=== PATIENT | male | born 1960 | race Caucasian/White ===

== ENCOUNTER 2017-07-08 08:46 | Emergency (ER) | payer SELFPAY ==
[~2017-07-08] VITALS: Ht 167.6 cm; Wt 76.0 kg
[2017-07-08 08:49] VITALS: BP 204/111; PULSE 87; RESP 16; TEMP 98; O2SAT 98
--- NOTE | 2017-07-08 09:10 | PD ---
HPI Chief Complaint: Dizziness Time Seen by Provider: 08:54 Travel History International Travel<30 days: No Contact w/Intl Traveler<30days: No Traveled to known affect area: No History of Present Illness HPI This 56-year-old male is complaining of pressure in his neck. He has been checking his blood pressure at home frequently at home and it has been greater than 200 systolic and sometimes greater than 100 diastolic. He has never been treated for high blood pressure. He is not having chest pain or shortness of breath. PFSH Past Medical History Diminished Hearing: No Genitourinary: Yes (unable to empty bladder at times-has seen md for this.) Hypertension: Yes Past Surgical History Eye Surgery: Yes (RIGHT EYE PARTIAL CORNEAL TRANSPLANT) Social History Alcohol Use: Yes (beer daily) Tobacco Use: No Substance Use: No Allergies-Medications (Allergen,Severity, Reaction): Coded Allergies: No Known Allergies (Verified Adverse Reaction, Unknown, 07/08/17) Reported Meds & Prescriptions Reported Meds & Active Scripts Active No Active Prescriptions or Reported Medications Review of Systems General / Constitutional: No: Fever, Chills Eyes: No: Diploplia, Blurred Vision, Drainage HENT: Positive: Headaches, No: Vertigo Cardiovascular: No: Chest Pain or Discomfort, Palpitations Respiratory: No: Cough, Shortness of Breath Genitourinary: No: Urgency Musculoskeletal: No: Myalgias Skin: No Rash Neurologic: No: Weakness Hematologic/Lymphatic: No: Easy Bruising Physical Exam Narrative GENERAL: Well-developed male SKIN: Focused skin assessment warm/dry. HEAD: Atraumatic. Normocephalic. EYES: Pupils equal and round. No scleral icterus. No injection or drainage. ENT: No nasal bleeding or discharge. Mucous membranes pink and moist. NECK: Trachea midline. No JVD. CARDIOVASCULAR: Regular rate and rhythm. No murmur appreciated. RESPIRATORY: No accessory muscle use. Clear to auscultation. Breath sounds equal bilaterally. GASTROINTESTINAL: Abdomen soft, non-tender, nondistended. Hepatic and splenic margins not palpable. MUSCULOSKELETAL: No obvious deformities. No clubbing. No cyanosis. No edema. NEUROLOGICAL: Awake and alert. No obvious cranial nerve deficits. Motor grossly within normal limits. Normal speech. PSYCHIATRIC: Appropriate mood and affect; insight and judgment normal. Data Data Last Documented VS Vital Signs Date Time Temp Pulse Resp B/P (MAP) Pulse Ox O2 Delivery O2 Flow Rate FiO2 07/08/17 09:43 88 12 175/92 (119) 99 Room Air 07/08/17 08:49 98.0 Orders Orders Electrocardiogram (07/08/17 09:01) Complete Blood Count With Diff (07/08/17 09:01) Basic Metabolic Panel (Bmp) (07/08/17 09:01) Labs Laboratory Tests Test 07/08/17 09:12 White Blood Count 4.5 TH/MM3 Red Blood Count 4.38 MIL/MM3 Hemoglobin 13.6 GM/DL Hematocrit 40.2 % Mean Corpuscular Volume 91.8 FL Mean Corpuscular Hemoglobin 31.1 PG Mean Corpuscular Hemoglobin Concent 33.9 % Red Cell Distribution Width 12.1 % Platelet Count 209 TH/MM3 Mean Platelet Volume 7.1 FL Neutrophils (%) (Auto) 58.0 % Lymphocytes (%) (Auto) 32.5 % Monocytes (%) (Auto) 6.8 % Eosinophils (%) (Auto) 2.1 % Basophils (%) (Auto) 0.6 % Neutrophils # (Auto) 2.6 TH/MM3 Lymphocytes # (Auto) 1.5 TH/MM3 Monocytes # (Auto) 0.3 TH/MM3 Eosinophils # (Auto) 0.1 TH/MM3 Basophils # (Auto) 0.0 TH/MM3 CBC Comment DIFF FINAL Differential Comment Creatinine 0.94 MG/DL Random Glucose 97 MG/DL Calcium Level 8.6 MG/DL Sodium Level 137 MEQ/L Potassium Level 4.3 MEQ/L Chloride Level 105 MEQ/L Carbon Dioxide Level 25.0 MEQ/L Anion Gap 7 MEQ/L Estimat Glomerular Filtration Rate 84 ML/MIN [facility] Medical Decision Making Medical Screen Exam Complete: Yes Emergency Medical Condition: Yes Medical Record Reviewed: Yes Differential Diagnosis Differential includes essential hypertension, electrolyte imbalance, Narrative Course EKG shows normal sinus rhythm. CBC normal. Creatinine is normal. Patient has had repeated readings which are been elevated and I think he does require medication. He'll be started on lisinopril 20 mg daily with recommendations that he follow up with a primary care doctor Diagnosis Primary Impression: Hypertension Scripts Lisinopril (Lisinopril) 20 Mg Tab 20 MG PO DAILY, #30 TAB 0 Refills Prov: Elliot Díaz MD 07/08/17 Disposition: 01 DISCHARGE HOME Condition: Stable Elliot Díaz MD Jul 08, 2017 09:10
[2017-07-08 09:22] LABS: AUTOMATED NEUTROPHIL # 2.6 TH/MM3 (1.8-7.7); BASOPHIL % 0.6 % (0.0-2.0); EOSINOPHIL # 0.1 TH/MM3 (0-0.4); EOSINOPHIL % 2.1 % (0.0-4.0); HEMATOCRIT 40.2 % (39.0-51.0); HEMO FLAGS DIFF FINAL; LYMPH % 32.5 % (9.0-44.0); LYMPHOCYTE # 1.5 TH/MM3 (1.0-4.8); MEAN CELL VOLUME 91.8 FL (80.0-100.0); MEAN CORPUSCULAR HEMOGLOBIN 31.1 PG (27.0-34.0); MEAN CORPUSCULAR HGB CONC 33.9 % (32.0-36.0); MONO % 6.8 % (0.0-8.0); PLATELET COUNT 209 TH/MM3 (150-450); RED BLOOD COUNT 4.38 MIL/MM3 (4.50-5.90); RED CELL DISTRIBUTION WIDTH 12.1 % (11.6-17.2); WHITE BLOOD COUNT 4.5 TH/MM3 (4.0-11.0)
[2017-07-08 09:43] VITALS: BP 175/92; PULSE 88; RESP 12; O2SAT 99
[2017-07-08 10:02] LABS: POTASSIUM 4.3 MEQ/L (3.5-5.1)
[2017-07-08] MEDS ORDERED: LISI-515 PO (10:05)
--- NOTE | 2017-07-08 19:08 | EKG ---
Date Performed: 07/08/2017 Time Performed: 09:14:41 PTAGE: 56 years EKG: Sinus rhythm MARKED LEFT AXIS DEVIATION PATTERN CONSISTENT WITH PULMONARY DISEASE NONSPECIFIC T-WAVE ABNORMALITY ABNORMAL ECG PREVIOUS TRACING : 09/28/2011 19.18 Compared to prior tracing no significant change DOCTOR: Richard Snell Interpretating Date/Time 07/08/2017 19:06:55
== END 2017-07-08 10:14 | disposition home or self-care (01) ==
LOC: PHED 08:46
DX: I10 Essential (primary) hypertension (principal)
CPT/HCPCS: 80048; 85025; 93005; 99284